=== PATIENT | male | born 1970 | race Caucasian/White ===

== ENCOUNTER → 2018-05-11 09:45 | Outpatient (CLI) | payer OTHER, SELFPAY ==
[2018-05-11 10:53] LABS: Add Manual Diff / Slide Review NO; Basophils Absolute Auto 0 /uL (0-100); Basophils Percent Auto 0.5 % (0-2); Eosinophils Absolute Auto 100 /uL (0-450); Eosinophils Percent Auto 1.8 % (2-4); Hematocrit 41.6 % (41-53); Hemoglobin 14.6 g/dL (13.5-17.5); Lymphocytes Absolute Auto 2000 /uL (1100-4500); Lymphocytes Percent Auto 30.5 % (25-40); Mean Corpuscular HGB Conc 35.1 % (30-36); Mean Corpuscular Hemoglobin 31.2 PG (26-34); Mean Corpuscular Volume 88.8 fL (80-100); Monocytes Absolute Auto 400 /uL (0-900); Monocytes Percent Auto 6.2 % (3-14); Neutrophils Absolute Auto 4100 /uL (1500-7000); Platelet Count 260 X10^3/uL (150-400); Red Blood Cell Count 4.68 X10^6/uL (4.5-5.9); Red Cell Distribution Width 13.4 % (11.6-14.8); White Blood Cell Count 6.7 X10^3/uL (4.5-11.0)
[2018-05-11 11:09] LABS: Alanine Aminotransferase 54 IU/L (21-72); Albumin 4.8 g/dL (3.5-5.0); Albumin Globulin Ratio 1.5 (1.0-2.8); Alkaline Phosphatase 56 U/L (38-126); Aspartate Aminotransferase 29 IU/L (17-59); BUN Creatinine Ratio 25.6 (6-22); Bilirubin Total 0.5 mg/dL (0.2-1.3); Blood Urea Nitrogen 23 mg/dL (9-20); Calcium 9.9 mg/dL (8.4-10.2); Carbon Dioxide 27 mmol/L (22-32); Chloride 102 mmol/L (98-107); Cholesterol 190 mg/dL (140-199); Estimated Glomerular Filt Rate > 60.0 mL/min (>60); Globulin 3.1 g/dL (1.7-4.1); Glucose 108 mg/dL (70-100); HDL Cholesterol 22 mg/dL (40-60); HEMOLYSIS < 15 (0-50); LDL Cholesterol Calculated 107 mg/dL (<100); Potassium 4.3 mmol/L (3.4-5.1); Sodium 140 mmol/L (137-145); Total Protein 7.9 g/dL (6.3-8.2); Triglycerides 305 mg/dL (35-150)
[2018-05-11 11:31] LABS: TSH w/ Reflex to FT4 2.09 uIU/mL (0.47-4.68)
== END ==
PROVIDERS: Family Provider Family Medicine; PCP Family Medicine; Visit Provider Family Medicine
DX: Z00.00 Encounter for general adult medical examination without abnormal findings (principal); Z13.6 Encounter for screening for cardiovascular disorders
CPT/HCPCS: 36415; 80053; 80061; 84443; 85025

== ENCOUNTER → 2021-04-20 11:49 | Outpatient (CLI) | payer OTHER, SELFPAY ==
[2021-04-20 13:07] LABS: Add Manual Diff / Slide Review NO; Basophils Absolute Auto 0 /uL (0-100); Basophils Percent Auto 0.6 % (0-2); Eosinophils Absolute Auto 100 /uL (0-450); Eosinophils Percent Auto 1.8 % (2-4); Hematocrit 40.1 % (41-53); Lymphocytes Absolute Auto 2600 /uL (1100-4500); Mean Corpuscular HGB Conc 34.9 % (30-36); Mean Corpuscular Hemoglobin 31.2 PG (26-34); Mean Corpuscular Volume 89.3 fL (80-100); Monocytes Absolute Auto 500 /uL (0-900); Monocytes Percent Auto 6.5 % (3-14); Neutrophils Absolute Auto 4200 /uL (1500-7000); Neutrophils Percent Auto 56.1 % (50-75); Platelet Count 288 X10^3/uL (150-400); Red Blood Cell Count 4.49 X10^6/uL (4.5-5.9); Red Cell Distribution Width 13.2 % (11.6-14.8); White Blood Cell Count 7.5 X10^3/uL (4.5-11.0)
[2021-04-20 13:35] LABS: Alanine Aminotransferase 48 IU/L (<50); Albumin 4.4 g/dL (3.5-5.0); Albumin Globulin Ratio 1.6 (1.0-2.8); Alkaline Phosphatase 55 U/L (38-126); Aspartate Aminotransferase 28 IU/L (17-59); BUN Creatinine Ratio 19.8 (6-22); Bilirubin Total 0.5 mg/dL (0.2-1.3); Blood Urea Nitrogen 17 mg/dL (9-20); Carbon Dioxide 30 mmol/L (22-32); Chloride 103 mmol/L (98-107); Cholesterol 184 mg/dL (140-199); Estimated Glomerular Filt Rate > 60.0 mL/min (>60); Globulin 2.8 g/dL (1.7-4.1); Glucose 99 mg/dL (70-100); HDL Cholesterol 25 mg/dL (40-60); HEMOLYSIS < 15 (0-50); LDL Cholesterol Calculated 113 mg/dL (<100); Potassium 4.4 mmol/L (3.4-5.1); Sodium 141 mmol/L (137-145); Total Protein 7.2 g/dL (6.3-8.2); Triglycerides 230 mg/dL (35-150)
[2021-04-20 14:01] LABS: Prostate Specific Antigen 0.617 ng/mL (0.10-4.00)
== END ==
PROVIDERS: Family Provider Family Medicine; PCP Family Medicine; Referring Provider Family Medicine; Visit Provider Family Medicine
DX: Z00.00 Encounter for general adult medical examination without abnormal findings (principal)
CPT/HCPCS: 36415; 80053; 80061; 84153; 85025

== ENCOUNTER → 2021-12-17 09:44 | Outpatient (CLI) | payer OTHER, SELFPAY ==
[2021-12-17 12:50] LABS: Cholesterol 186 mg/dL (140-199); HDL Cholesterol 26 mg/dL (40-60); LDL Cholesterol Calculated 108 mg/dL (<100); Triglycerides 261 mg/dL (35-150)
== END ==
PROVIDERS: Family Provider Family Medicine; PCP Family Medicine; Referring Provider Physician Assistant; Visit Provider Physician Assistant
DX: E78.1 Pure hyperglyceridemia (principal); Z83.3 Family history of diabetes mellitus
CPT/HCPCS: 36415; 80061

== ENCOUNTER → 2022-04-30 11:36 | Outpatient (CLI) | payer OTHER, SELFPAY ==
--- NOTE | 2022-04-30 11:37 | DI.MRI.S_ITS ---
PROCEDURE: MR LUMBAR SPINE WO CON INDICATIONS: back pain with radiculopathy TECHNIQUE: Noncontrast sagittal T1 spin echo and T2 fast echo, sagittal STIR, and T2 fast spin echo through the lumbar spine. In cases with scoliosis, additional coronal T2 fast spin echo may be performed. COMPARISON: None. FINDINGS: Image quality: Excellent. Alignment and Curvature: There is mild retrolisthesis at L4-L5, with minimal retrolisthesis at L5-S1. Bone Marrow: Marrow is of normal overall signal. No acute vertebral body compression fractures. Spinal Cord: Conus medullaris terminates at the L1 level. Visualized cord demonstrates normal signal and size. Paraspinous Soft Tissues: No paravertebral masses. T12-L1: Normal appearance. L1-L2: Normal appearance. L2-L3: Normal appearance. L3-L4: The disc height is well-preserved. Loss of disc signal is seen at this level. Moderate disc bulge is seen, which is eccentric to the left. There is a central disc extrusion, with superior migration of the disc material. Mild facet joint hypertrophy is seen. Moderate bilateral neural foraminal narrowing is seen. At least moderate central canal narrowing is seen, as on series 5, image 20. L4-L5: At least moderate loss of disc height and disc signal can be seen at this level. Reactive marrow endplate changes are seen posteriorly, which are hyperintense on T1-weighted and T2-weighted imaging and most consistent with fatty metaplasia (Modic type II changes). Moderate disc bulge is seen, with a central/right disc extrusion. There is a focal annular fissure seen posteriorly. Moderate facet joint hypertrophy is seen. There is at least moderate left-sided and moderate to severe right-sided neural foraminal narrowing. There is a degree of compression seen upon the exiting nerve roots. There is severe central canal narrowing seen, as on series 5, image 26. L5-S1: At least moderate loss of disc height and disc signal can be seen. Reactive marrow endplate changes are seen posteriorly, which are hyperintense on T1-weighted and T2-weighted imaging and most consistent with fatty metaplasia (Modic type II changes). Moderate disc bulge is seen, which is eccentric to the left. There is a superimposed central disc protrusion. At least moderate facet hypertrophy is seen. There is moderate to severe bilateral neural foraminal narrowing seen, with an associated a degree of compression seen upon the exiting nerve roots. Moderate central canal narrowing is seen. IMPRESSION: Relatively prominent lower lumbar spine degenerative changes are seen, including severe central canal narrowing at L4-L5. Disc extrusions can be seen at L3-L4 and L4-L5. Several sites of significant neural foraminal narrowing can be seen, with associated exiting nerve root compression. Dictated by: Abhijeet Fonseca M.D. on 04/30/2022 at 13:38 Approved by: Abhijeet Fonseca M.D. on 04/30/2022 at 13:47
== END ==
PROVIDERS: Family Provider Family Medicine; PCP Family Medicine; Referring Provider Family Medicine; Visit Provider Family Medicine
DX: M51.16 Intervertebral disc disorders with radiculopathy, lumbar region (principal); M51.17 Intervertebral disc disorders with radiculopathy, lumbosacral region; M47.26 Other spondylosis with radiculopathy, lumbar region; M47.27 Other spondylosis with radiculopathy, lumbosacral region; M48.061 Spinal stenosis, lumbar region without neurogenic claudication; M48.07 Spinal stenosis, lumbosacral region; M54.50 Low back pain, unspecified
CPT/HCPCS: 72148

== ENCOUNTER → 2022-05-13 12:41 | Outpatient (CLI) | payer OTHER, SELFPAY ==
--- NOTE | 2022-05-13 12:43 | DI.RAD.S_ITS ---
PROCEDURE: XR LUMBAR SPINE MIN 4V INDICATIONS: BACK PAIN TECHNIQUE: 5 views of the lumbar spine were acquired, including bilateral oblique views. COMPARISON: [facility], MR, MR LUMBAR SPINE WO CON, 04/30/2022, 11:41. FINDINGS: Bones: 5 nonrib-bearing vertebrae are present. No substantial curvature of the lumbar spine. 2 millimeters retrolisthesis L3 on L4. 2 millimeters retrolisthesis L4 on L5. No vertebral body compression fractures. Moderate multilevel degenerative changes with disc height loss, endplate spurring, and facet arthropathy. Soft tissues: Overlying bowel gas pattern is normal. No suspicious soft tissue calcifications. Oblique images: Suspect mild to moderate multilevel bony foraminal narrowing most pronounced at the lower lumbar spine. IMPRESSION: Multilevel degenerative changes of the lumbar spine worst from L4 through S1. Dictated by: Alejandro Ramirez M.D. on 05/14/2022 at 9:36 Approved by: Alejandro Ramirez M.D. on 05/14/2022 at 9:39
== END ==
PROVIDERS: Family Provider Family Medicine; PCP Family Medicine; Referring Provider Physical Medicine & Rehabilitation; Visit Provider Physical Medicine & Rehabilitation
DX: M51.26 Other intervertebral disc displacement, lumbar region (principal); M47.816 Spondylosis without myelopathy or radiculopathy, lumbar region; M47.817 Spondylosis without myelopathy or radiculopathy, lumbosacral region
CPT/HCPCS: 72110; 99214

== ENCOUNTER 2022-06-08 14:10 | Outpatient (CLI) | payer OTHER, SELFPAY ==
[2022-06-08] VITALS (8 sets, daily range): BP systolic 135–152; BP diastolic 75–98; PULSE 84–94; RESP 12–18; TEMP 36.4; O2SAT 96–98
--- NOTE | 2022-06-08 14:13 | DI.RAD.S_ITS ---
PROCEDURE: PAIN L INTERLAMINAR/CAUDAL INJ INDICATIONS: SPONDYLOSIS COMPARISON: None. FINDINGS: Fluoroscopic spot filming was performed to verify placement of spinal needles at the lower lumbar level(s), as labeled on the films. Appropriate location(s) of the needle tip(s) was confirmed by injection of iodinated contrast. IMPRESSION: Needle placement as above Dictated by: Imani Espitia M.D. on 06/09/2022 at 10:28 Transcribed by: KENNEDY on 06/09/2022 at 10:28 Approved by: Imani Espitia M.D. on 06/09/2022 at 15:56
[2022-06-08] MEDS: MIDAZOLAM 2 MG/2 ML VIAL 4 MG IV (14:50)
[2022-06-08] MEDS: BUPIVACAINE 0.25% (PF) VIAL 2 ML INJ (14:51)
[2022-06-08] MEDS: DEXAMETHASONE 10 MG/ML VIAL 20 MG INJ (14:51)
[2022-06-08] MEDS: BETAMETHASONE 30 MG/5 ML MDV 6 MG INJ (14:51)
[2022-06-08] MEDS: IOPAMIDOL 15 ML VIAL 3 ML INJ (14:51)
--- NOTE | 2022-06-08 15:03 | P.PCN_ITS ---
Date/Time/Diagnoses Date of procedure: 06/08/22 Time of procedure: 15:03 Pre-procedure diagnosis: 1. HNP WITH RADICULAR FEATURES, 2. MULTILEVEL CENTRAL STENOSIS, Post-procedure diagnosis: same Procedure Notes Procedure: 1. FLUOROSCOPICALLY GUIDED CONTRAST CONTROLLED INTERLAMINAR EPIDURAL STEROID INJECTION -L4/5 Indications: Yomi is referred by Dr. Reich for treatment of Bilateral Foraminal Stenosis R>L LE symptoms. Physician: Lm Herman Total Fluoroscopy time (seconds): 9 Total sedation minutes: 13 Complications: none Procedure in detail & Post-procedure care: FINDINGS Multilevel Central Spinal Stenosis with Nerve Root Compression DESCRIPTION OF PROCEDURE Fluoroscopically guided, contrast-controlled L4/5 translaminar epidural steroid injection. Following review of allergy and review of potential side effects and complications, including, but not necessarily limited to, infection, allergic reaction, local tissue breakdown, temporary as well as permanent nerve injury, paralysis, stroke and possible , the patient indicated that the patient understood and agreed to proceed. An informed consent document was signed by the patient, witnessed by a nurse, and placed in the patient's chart. Additionally, other treatment options including modalities, medications, and physical therapy were reviewed with the patient. After review of previous anaesthesic history and IV conscious sedation the patient was deemed safe to proceed with today?s procedure with IV conscious sedation as ASA class II designation. Safety time-out was performed to confirm patient ID, procedure to be performed and site of procedure. IV sedation was accomplished with a combination of 4mg of Versed was administered by the RN after DO order, titrated to patient comfort during the course of the procedure while the patient remained responsive to all verbal commands In the prone position, following sterile prep and drape of the lumbar region, the L4/5 translaminar space was identified fluoroscopically. The skin was anesthetized via a 25-gauge, 1.5inch needle with 1% lidocaine solution. At this point, a 22-gauge short bevel spinal needle was atraumatically introduced and advanced under fluoroscopic guidance into the region of the L4/5 translaminar space. Depth was confirmed on lateral view. Radiological data, including multiple fluoroscopic views of the lumbar spine, reveal a spinal needle at the L4/5 translaminar space. Lateral views then show placement of the needle in the epidural space. Subsequent views show contrast material flowing superiorly and inferiorly in the epidural space. No vascular or intrathecal uptake is observed. At this point, using loss of resistance technique with saline and air, the epidural space was entered. This was confirmed following negative aspiration with injection of approximately 1.5cc of Isovue 200, showing excellent epidural flow without vascular or intrathecal uptake. At this point, 1cc of 1% lidocaine solution combined with 3cc or 20mg of dexamethasone and 6mg betamethasone was injected without incident. The patient tolerated the procedure well without signs or symptoms of complications prior to transfer to the recovery area continued monitoring without incident. The patient was then transferred to the recovery area where they were observed for an appropriate period of time after the injection. The patient reported a VAS score of 6 prior to the procedure and a post- procedure VAS of 0. POST OP INSTRUCTIONS The patient was provided a Pain Log to continue to record their response to the target-specific procedure prior to follow-up visit with their referring physician. Additionally, specific post-injection care instructions and a contact number to our office were provided if concerns arise regarding possible complications associated with the procedure are suspected.
== END 2022-06-08 15:23 | disposition home or self-care (01) ==
LOC: RAD 14:12
PROVIDERS: Family Provider Family Medicine; PCP Family Medicine; Referring Provider Physical Medicine & Rehabilitation; Visit Provider Physical Medicine & Rehabilitation
DX: M51.16 Intervertebral disc disorders with radiculopathy, lumbar region (principal); M48.061 Spinal stenosis, lumbar region without neurogenic claudication
CPT/HCPCS: 62323; 99152; J0702; J1100; J2250; J3490

== ENCOUNTER 2022-09-09 08:11 | Outpatient (CLI) | payer OTHER, SELFPAY ==
[2022-09-09] VITALS (10 sets, daily range): BP systolic 133–180; BP diastolic 90–122; PULSE 85–104; RESP 14–20; TEMP 36.1; O2SAT 93–100
--- NOTE | 2022-09-09 08:12 | DI.RAD.S_ITS ---
PROCEDURE: PAIN L INTERLAMINAR/CAUDAL INJ INDICATIONS: SPONDYLOSIS COMPARISON: [facility], XA, PAIN L INTERLAMINAR/CAUDAL INJ, 06/08/2022, 15:51. FINDINGS: Fluoroscopic spot filming was performed to verify placement of spinal needles at the 4 5 level(s), as labeled on the films. Appropriate location(s) of the needle tip(s) was confirmed by injection of iodinated contrast. IMPRESSION: Fluoroscopic guidance Approved by: Carlos Burt M.D. on 09/10/2022 at 10:23
[2022-09-09] MEDS: MIDAZOLAM 2 MG/2 ML VIAL 4 MG IV (08:36)
[2022-09-09] MEDS: IOPAMIDOL 15 ML VIAL 3 ML INJ (08:39)
[2022-09-09] MEDS: methylPREDNISolone acetate 80 MG/ML VIAL INJ (08:39)
[2022-09-09] MEDS: DEXAMETHASONE 10 MG/ML VIAL 20 MG INJ (08:40)
[2022-09-09] MEDS: BUPIVACAINE 0.25% MDV 2 ML INJ (08:41)
--- NOTE | 2022-09-09 08:47 | P.PCN_ITS ---
Date/Time/Diagnoses Date of procedure: 09/09/22 Time of procedure: 08:47 Pre-procedure diagnosis: 1. HNP WITH RADICULAR FEATURES, 2. MULTILEVEL CENTRAL STENOSIS, Post-procedure diagnosis: same Procedure Notes Procedure: 1. FLUOROSCOPICALLY GUIDED CONTRAST CONTROLLED INTERLAMINAR EPIDURAL STEROID INJECTION -L4/5 Indications: Yomi is referred by Dr. Reich for treatment of HNP L>R LE symptoms. Physician: Lm Herman Total Fluoroscopy time (seconds): 6 Total sedation minutes: 12 Complications: none Procedure in detail & Post-procedure care: FINDINGS Multilevel Central Spinal Stenosis with Nerve Root Compression DESCRIPTION OF PROCEDURE Fluoroscopically guided, contrast-controlled L4/5 translaminar epidural steroid injection. Following review of allergy and review of potential side effects and complications, including, but not necessarily limited to, infection, allergic reaction, local tissue breakdown, temporary as well as permanent nerve injury, paralysis, stroke and possible , the patient indicated that the patient understood and agreed to proceed. An informed consent document was signed by the patient, witnessed by a nurse, and placed in the patient's chart. Additionally, other treatment options including modalities, medications, and physical therapy were reviewed with the patient. After review of previous anaesthesic history and IV conscious sedation the patient was deemed safe to proceed with today?s procedure with IV conscious sedation as ASA class II designation. Safety time-out was performed to confirm patient ID, procedure to be performed and site of procedure. IV sedation was accomplished with a combination of 4mg of Versed was administered by the RN after DO order, titrated to patient comfort during the course of the procedure while the patient remained responsive to all verbal commands In the prone position, following sterile prep and drape of the lumbar region, the L4/5 translaminar space was identified fluoroscopically. The skin was anesthetized via a 25-gauge, 1.5inch needle with 1% lidocaine solution. At this point, a 22-gauge short bevel spinal needle was atraumatically introduced and advanced under fluoroscopic guidance into the region of the L4/5 translaminar space. Depth was confirmed on lateral view. Radiological data, including multiple fluoroscopic views of the lumbar spine, reveal a spinal needle at the L4/5 translaminar space. Lateral views then show placement of the needle in the epidural space. Subsequent views show contrast material flowing superiorly and inferiorly in the epidural space. No vascular or intrathecal uptake is observed. At this point, using loss of resistance technique with saline and air, the epidural space was entered. This was confirmed following negative aspiration with injection of approximately 1.5cc of Isovue 200, showing excellent epidural flow without vascular or intrathecal uptake. At this point, 1cc of 1% lidocaine solution combined with 3cc or 20mg of dexamethasone and 80mg depo medrol was injected without incident. The patient tolerated the procedure well without signs or symptoms of complications prior to transfer to the recovery area continued monitoring without incident. The patient was then transferred to the recovery area where they were observed for an appropriate period of time after the injection. The patient reported a VAS score of 6 prior to the procedure and a post- procedure VAS of 0. POST OP INSTRUCTIONS The patient was provided a Pain Log to continue to record their response to the target-specific procedure prior to follow-up visit with their referring physician. Additionally, specific post-injection care instructions and a contact number to our office were provided if concerns arise regarding possible complications associated with the procedure are suspected.
== END 2022-09-09 09:10 | disposition home or self-care (01) ==
LOC: RAD 08:12
PROVIDERS: Family Provider Family Medicine; PCP Family Medicine; Referring Provider Physical Medicine & Rehabilitation; Visit Provider Physical Medicine & Rehabilitation
DX: M51.16 Intervertebral disc disorders with radiculopathy, lumbar region (principal); M48.061 Spinal stenosis, lumbar region without neurogenic claudication
CPT/HCPCS: 62323; 99152; J0702; J1040; J1100; J2250; J3490

== ENCOUNTER 2023-02-01 09:49 | Outpatient (CLI) | payer OTHER, SELFPAY ==
[2023-02-01] VITALS (10 sets, daily range): BP systolic 126–152; BP diastolic 60–97; PULSE 64–86; RESP 13–20; TEMP 35.9; O2SAT 93–97
--- NOTE | 2023-02-01 09:51 | DI.RAD.S_ITS ---
PROCEDURE: PAIN L/S TRANSFORAMINAL INJECT INDICATIONS: SPONDYLOSIS COMPARISON: XA, PAIN L INTERLAMINAR/CAUDAL INJ, 09/09/2022, 8:39. XA, PAIN L INTERLAMINAR/CAUDAL INJ, 06/08/2022, 15:51. CR, XR LUMBAR SPINE MIN 4V, 05/13/2022, 12:56. [facility], MR, MR LUMBAR SPINE WO CON, 04/30/2022, 11:41. RG, XR L-SPINE 2-3V, 12/21/2005, 11:31. FINDINGS: Fluoroscopic spot filming was performed to verify placement of spinal needles at the L4-5 level(s), as labeled on the films. Appropriate location(s) of the needle tip(s) was confirmed by injection of iodinated contrast. IMPRESSION: Needle placement and contrast injection overlying L4-5. Dictated by: Niki Martinez M.D. on 02/01/2023 at 14:33 Approved by: Niki Martinez M.D. on 02/01/2023 at 14:34
[2023-02-01] MEDS: MIDAZOLAM 2 MG/2 ML VIAL IV (10:38)
[2023-02-01] MEDS: fentaNYL 100 MCG/2 ML INJ 50 MCG IV ×2 (10:38→10:44)
--- NOTE | 2023-02-01 10:56 | P.PCN_ITS ---
Date/Time/Diagnoses Date of procedure: 02/01/23 Time of procedure: 10:56 Pre-procedure diagnosis: 1. FORAMINAL STENOSIS WITH LE SYMPTOMS Post-procedure diagnosis: same Procedure Notes Procedure: 1. FLUOROSCOPICALLY GUIDED CONTRAST CONTROLLED TRANSFORAMINAL EPIDURAL STEROID INJECTION - RIGHT L4/5 TFESI Indications: Yomi is referred by Dr. Reich for treatment of Foraminal Stenosis with Right LE Symptoms Physician: Lm Herman Total Fluoroscopy time (seconds): 13 Total sedation minutes: 15 Complications: none Procedure in detail & Post-procedure care: FINDINGS Foraminal Nerve Root Compression secondary to disc disease and facet hypertrophy DESCRIPTION OF PROCEDURE Following review of allergy and review of potential side effects and complications, including, but not necessarily limited to, infection, allergic reaction, local tissue breakdown, stroke, temporary or permanent nerve injury, paralysis, and possible , the patient indicated that the patient understood and agreed to proceed. An informed consent document was signed by the patient, witnessed by a nurse, and placed in the patient's chart. Additionally, other treatment options including medications, modalities, and physical therapy were reviewed with the patient. After review of previous anaesthesic history and IV conscious sedation the patient was deemed safe to proceed with today?s procedure with IV conscious sedation as ASA class II designation. Safety time-out was performed to confirm patient ID, procedure to be performed and site of procedure. IV sedation was accomplished with a combination of 2mg of Versed and 100mcg of Fentanyl was administered by the RN after DO order, titrated to patient comfort during the course of the procedure while the patient remained responsive to all verbal c ommands In the prone position following sterile prep and drape of the lumbar region, the right L4/5 posterior neuroforamen was identified fluoroscopically. The skin was anesthetized via a 25-gauge 1.5-inch needle with 1% lidocaine solution. At this point, a 25-gauge 3.5-inch spinal needle was atraumatically introduced and advanced under fluoroscopic guidance through the posterior right L4/5 neuroforamen to approximately the anterior aspect of the canal. Depth was confirmed on lateral view. Following negative aspiration, injection of approximately 1.5cc of Isovue 200 under live fluoroscopy in the AP view confirmed excellent flow along the nerve root, into the epidural space without vascular or intrathecal uptake observed Radiological data, including multiple fluoroscopic views of the lumbosacral spine, reveal a spinal needle at the right L4/5 posterior neuroforamen. Subsequent views show flow of contrast material flowing superiorly and inferiorly along the nerve root confirming epidural flow. Subsequently, a test dose of 1.5 cc of 1% lidocaine solution was administered and patient was observed for two minutes for signs or symptoms of complications, including abdominal pain, shortness of breath, bilateral upper or lower extremity weakness, nausea and vomiting, prior to steroid injection. At this point, a total of 2cc or 10mg of dexamethasone and 6mg of betamethasone was injected without incident. The procedure tolerated the procedure well without signs or symptoms of complications prior to transfer to the recovery area continued monitoring without incident. The patient was then transferred to the recovery area where they were observed for an appropriate time after the injection. The patient reported a VAS score of 7 prior to the procedure and a post- procedure VAS of 0. POST OP INSTRUCTIONS The patient was provided a Pain Log to continue to record their response to the target-specific procedure prior to follow-up visit with their referring physician. Additionally, specific post-injection care instructions and a contact number to our office were provided if concerns arise regarding possible complications associated with the procedure are suspected.
== END 2023-02-01 11:15 | disposition home or self-care (01) ==
LOC: RAD 09:50
PROVIDERS: Family Provider Family Medicine; PCP Family Medicine; Referring Provider Physical Medicine & Rehabilitation; Visit Provider Physical Medicine & Rehabilitation
DX: M48.061 Spinal stenosis, lumbar region without neurogenic claudication (principal); M51.16 Intervertebral disc disorders with radiculopathy, lumbar region; M47.26 Other spondylosis with radiculopathy, lumbar region
CPT/HCPCS: 64483; 99152; J0702; J1100; J2250; J3010

== ENCOUNTER 2023-04-15 13:09 | Day surgery (SDC) | payer OTHER, SELFPAY ==
[2023-04-15] VITALS (7 sets, daily range): BP systolic 113–178; BP diastolic 71–110; PULSE 73–88; RESP 16–18; TEMP 36.2–36.9; O2SAT 97–98; BMI 31.5
--- NOTE | 2023-04-15 | PATH_ITS ---
[facility] Accession Number: [id number] No. of containers..01 Tissue . 01 Material submitted: . colon - DESCENDING POLYP . 01 Diagnosis: Descending Colon Polyp, Biopsy: Tubular adenoma. [facility] 04/19/2023 1048 Local . 01 Electronically signed: . Jodi Fuentes MD, Pathologist NPI- [id number] . 01 Gross description: . DESCENDING POLYP: Received in formalin are 2 fragment(s) of childers, soft tissue measuring 0.1 x 0.1 x 0.1 cm to 0.3 x 0.3 x 0.3 cm submitted entirely in 1 cassette(s) /[facility] 04/18/2023 1918 Local . 01 Pathologist provided ICD-10: D12.4 . 01 CPT . 115719 Specimen Comment: A courtesy copy of this report has been sent to [phone] Performed at: 01 [facility] [address] [place] [address], [place], [place] [id number] MD Nico Bennett MD Phone: [phone]
--- NOTE | 2023-04-15 13:35 | P.HP_ITS ---
History of Present Illness History of Present Illness Date Patient Seen: 04/15/23 Chief complaint: EGD & Screening Colonoscopy Narrative: 52-year-old man chronic GERD here for screening EGD and colonoscopy. GERD is fairly well controlled with Prilosec twice daily. No esophageal dysphagia unintentional weight loss blood per rectum. They have never had any previous examination for such. No personal or family history of colon cancer in first- degree relatives. [facility] Medical History Facet arthropathy, cervical Facet arthropathy, lumbar Herniated nucleus pulposus, L4-5 Family History Father Diabetes mellitus Social History marital status: household members: spouse Smoking Status: Current every day smoker alcohol intake: current substance use type: does not use Meds Home Medications and Allergies Home Medications Medication Instructions Recorded Confirmed Type ibuprofen 200 mg capsule 200 mg PO Q6H PRN Pain (Scale 05/13/22 04/15/23 History Score 1-3) gabapentin 600 mg tablet 600 mg PO BID #60 tabs 08/12/22 04/15/23 Rx hydrocodone 5 mg-acetaminophen 325 1 tab PO BID #30 tabs 08/12/22 04/15/23 Rx mg tablet omeprazole 20 mg capsule,delayed 20 mg PO BID #180 caps 03/02/23 04/15/23 Rx release sildenafil (pulm.hypertension) 20 60 mg (3 x 20 mg) PO .QDAY PRN 03/17/23 03/17/23 Rx mg tablet (Revatio) sexual activity #30 tabs varenicline 1 mg tablet 1 mg PO BID #180 tabs 03/31/23 04/15/23 Rx Allergies Allergy/AdvReac Type Severity Reaction Status Date / Time No Known Drug Allergies Allergy Verified 04/15/23 13:19 Exam Vital Signs (past 8 hours): - 04/15/23 13:26 Temperature 97.1 F L Pulse Rate 73 Respiratory Rate 18 Blood Pressure 134/84 Pulse Oximetry 97 Oxygen Delivery Method Room Air Oxygen Delivery Method Room Air Narrative Exam Narrative: General adult man alert oriented no acute distress Chest nonlabored respiration Extremities warm well perfused Assessment & Plan Assessment and plan (1) Gastroesophageal reflux disease: Qualifiers: Esophagitis presence: esophagitis presence not specified Qualified Code(s): K21.9 - Gastro-esophageal reflux disease without esophagitis Status: Acute Assessment & Plan narrative: 52-year-old man with chronic GERD here for screening esophagoduodenoscopy and c olonoscopy. Technical details were discussed. Risks, benefits, alternatives explained. Risks including but not limited to myocardial infarction, aspiration, bleeding, pain, missed lesion, incomplete examination, need for further radiographic studies, colonic perforation, and need for major abdominal surgery were discussed. All questions were answered to their satisfaction, and they are in agreement with this plan.
[2023-04-15] MEDS: LACTATED RINGERS 1,000 ML 42 ML IV (13:56)
--- NOTE | 2023-04-15 14:46 | PM.OP.EC ---
Operative Date/Time/Diagnoses Date of procedure: 04/15/23 Time of procedure: 14:46 Pre-op diagnosis: GERD Post-op diagnosis: other (Colonic polyp x1) Procedure & Clinicians Study performed: Screening esophagoduodenoscopy and colonoscopy Same procedure as scheduled: Yes Indications: Colorectal screening Chronic GERD Surgeon: Med Finley Procedure Notes Procedure in detail: The history and physical was performed/updated and the patient is ASA class is 3. The procedure was discussed in detail with the patient. Potential risks complications including infection, bleeding, missed diagnosis, perforation, need for surgery, and were explained. Their questions were answered and informed consent was obtained. Patient placed in left lateral decubitus position. Time out was performed. Procedural sedation was administered by Anesthesia. A bite block was placed. the scope was inserted into the mouth and advanced through the esophagus and into the stomach. the pylorus was intubated and the duodenum was examined to the 2nd portion.. The scope was retroflexed within the stomach. The stomach was then decompressed and scope pulled back to the GE junction. The scope was then removed Examination began with a thorough inspection of the perianal area there was no evidence of fissures, fistulae, external hemorrhoids or cutaneous malignancy. The colonoscopy scope was then placed into the anal canal and was advanced to the cecum, which was identified by the ileocecal valve, the appendiceal orifice and the confluence of the taenia. The scope was then slowly withdrawn examining colon thoroughly in all directions, irrigating it of any residual stool. FINDINGS -unremarkable upper endoscopy. -no evidence of Calderon's esophagus -descending colon 5 mm polyp removed with biopsy forceps in entirety. The patient tolerated the procedure well. They will be discharged once criteria are met. The prep was of good/excellent quality. The withdrawl time was 6 minutes. Specimen(s): other (Descending colon polyp) Impression: Colonic polyp x1 Post-procedure Plan for aftercare: Follow-up dependent on pathology findings likely 5 years. Disposition: same day surgery
--- NOTE | 2023-04-15 15:11 | SUR.PHASEII ---
Pt to Phase II. Pt with excessive flatus. Abdomen distended, soft. Pt up to restroom. Pt states he feels better.
== END 2023-04-15 15:30 | disposition home or self-care (01) ==
PROVIDERS: Family Provider Family Medicine; PCP Family Medicine; Referring Provider Surgery; Visit Provider Surgery
PROC: 0DJ08ZZ Inspection of Upper Intestinal Tract, Via Natural or Artificial Opening Endoscopic (ICD-10-PCS; CPT 43235; principal; 2023-04-15 14:15)
PROC: 0DJD8ZZ Inspection of Lower Intestinal Tract, Via Natural or Artificial Opening Endoscopic (ICD-10-PCS; CPT 45378; 2023-04-15 14:15)
DX: Z12.11 Encounter for screening for malignant neoplasm of colon (principal); K21.9 Gastro-esophageal reflux disease without esophagitis; D12.4 Benign neoplasm of descending colon
CPT/HCPCS: 45380; 43235; J2704

== ENCOUNTER → 2023-05-03 09:47 | Outpatient (CLI) | payer OTHER, SELFPAY ==
[2023-05-03 10:26] LABS: Add Manual Diff / Slide Review NO; Basophils Absolute Auto 100 /uL (0-100); Basophils Percent Auto 0.7 % (0-2); Eosinophils Absolute Auto 100 /uL (0-450); Eosinophils Percent Auto 1.2 % (2-4); Hematocrit 40.9 % (41-53); Hemoglobin 14.3 g/dL (13.5-17.5); Lymphocytes Absolute Auto 2300 /uL (1100-4500); Lymphocytes Percent Auto 28.2 % (25-40); Mean Corpuscular HGB Conc 34.9 % (30-36); Mean Corpuscular Hemoglobin 30.8 PG (26-34); Mean Corpuscular Volume 88.2 fL (80-100); Monocytes Absolute Auto 500 /uL (0-900); Monocytes Percent Auto 6.4 % (3-14); Neutrophils Absolute Auto 5100 /uL (1500-7000); Neutrophils Percent Auto 63.5 % (50-75); Platelet Count 261 X10^3/uL (150-400); Red Blood Cell Count 4.64 X10^6/uL (4.5-5.9); Red Cell Distribution Width 13.1 % (11.6-14.8)
[2023-05-03 10:50] LABS: Alanine Aminotransferase 49 IU/L (<50); Albumin 4.4 g/dL (3.5-5.0); Albumin Globulin Ratio 1.5 (1.0-2.8); Alkaline Phosphatase 55 U/L (38-126); Aspartate Aminotransferase 29 IU/L (17-59); BUN Creatinine Ratio 21.8 (6-22); Bilirubin Total 0.6 mg/dL (0.2-1.3); Blood Urea Nitrogen 19 mg/dL (9-20); Calcium 9.7 mg/dL (8.4-10.2); Carbon Dioxide 29 mmol/L (22-32); Chloride 102 mmol/L (98-107); Cholesterol 203 mg/dL (140-199); Estimated Glomerular Filt Rate > 60 mL/min (>60); Glucose 116 mg/dL (70-100); HDL Cholesterol 28 mg/dL (40-60); HEMOLYSIS < 15 (0-50); Potassium 3.9 mmol/L (3.4-5.1); Sodium 139 mmol/L (137-145); Total Protein 7.4 g/dL (6.3-8.2); Triglycerides 487 mg/dL (35-150)
[2023-05-03 11:21] LABS: TSH w/ Reflex to FT4 1.53 uIU/mL (0.47-4.68)
== END ==
PROVIDERS: Family Provider Family Medicine; PCP Family Medicine; Referring Provider Family Medicine; Visit Provider Family Medicine
DX: E78.1 Pure hyperglyceridemia (principal); M54.50 Low back pain, unspecified
CPT/HCPCS: 36415; 80053; 80061; 84443; 85025

== ENCOUNTER → 2024-05-25 07:45 | Outpatient (CLI) | payer OTHER, SELFPAY ==
--- NOTE | 2024-05-25 07:47 | DI.CT.S_ITS ---
PROCEDURE: CT LUNG LOW DOSE SCREENING INDICATIONS: 20 year smoker TECHNIQUE: Noncontrast 2.0-2.5 mm thick sections acquired from the pulmonary apices to the posterior costophrenic angles. 7 mm thick axial MIP, and 5 mm coronal and sagittal reformats were then acquired. For radiation dose reduction, the following was used: automated exposure control, adjustment of mA and/or kV according to patient size. COMPARISON: None. FINDINGS: Image quality: Diagnostic. Lower Neck: No enlarged lymph nodes. Thyroid: No thyroid nodules which require sonographic follow up, per consensus guidelines. Axillae: No enlarged lymph nodes. Chest Wall: Unremarkable. Bones: Unremarkable. Lungs and Pleura: No pneumothorax or pleural effusions. No consolidation or suspicious nodules. Heart: Heart size is normal. No pericardial effusion. Thoracic Vessels: The aorta and pulmonary arteries demonstrate normal size. Mediastinum and Shelly: No enlarged lymph nodes. Esophagus: No wall thickening. No hiatal hernia. Upper Abdomen: Visualized upper abdomen solid organs and bowel loops appear normal. IMPRESSION: No suspicious pulmonary nodules. LUNG-RADS 1; continued annual screening, if eligible. Clinically Significant Non-pulmonary Findings: None. Approved by: Stephanie Quintanilla M.D.,Ph.D. on 05/25/2024 at 23:52
[2024-05-25 08:45] LABS: Add Manual Diff / Slide Review NO; Basophils Absolute Auto 100 /uL (0-100); Basophils Percent Auto 0.7 % (0-2); Eosinophils Absolute Auto 100 /uL (0-450); Eosinophils Percent Auto 1.2 % (2-4); Hematocrit 41.8 % (41-53); Hemoglobin 14.4 g/dL (13.5-17.5); Lymphocytes Absolute Auto 2300 /uL (1100-4500); Lymphocytes Percent Auto 24.9 % (25-40); Mean Corpuscular HGB Conc 34.3 % (30-36); Mean Corpuscular Hemoglobin 31.2 PG (26-34); Monocytes Absolute Auto 600 /uL (0-900); Monocytes Percent Auto 6.7 % (3-14); Neutrophils Absolute Auto 6200 /uL (1500-7000); Neutrophils Percent Auto 66.5 % (50-75); Platelet Count 281 X10^3/uL (150-400); Red Cell Distribution Width 13.7 % (11.6-14.8); White Blood Cell Count 9.2 X10^3/uL (4.5-11.0)
[2024-05-25 09:09] LABS: Alanine Aminotransferase 61 IU/L (<50); Albumin 4.5 g/dL (3.5-5.0); Albumin Globulin Ratio 1.7 (1.0-2.8); Alkaline Phosphatase 67 U/L (38-126); Aspartate Aminotransferase 35 IU/L (17-59); BUN Creatinine Ratio 21.3 (6-22); Bilirubin Total 0.6 mg/dL (0.2-1.3); Blood Urea Nitrogen 20 mg/dL (9-20); Calcium 9.8 mg/dL (8.4-10.2); Carbon Dioxide 27 mmol/L (22-32); Chloride 105 mmol/L (98-107); Estimated Glomerular Filt Rate > 60 mL/min (>60); Globulin 2.6 g/dL (1.7-4.1); Glucose 117 mg/dL (70-100); HDL Cholesterol 25 mg/dL (40-60); HEMOLYSIS < 15 (0-50); Potassium 4.3 mmol/L (3.4-5.1); Sodium 139 mmol/L (137-145); Total Protein 7.1 g/dL (6.3-8.2)
[2024-05-25 09:10] LABS: Cholesterol 211 mg/dL (140-199); Triglycerides 432 mg/dL (35-150)
[2024-05-25 09:34] LABS: TSH w/ Reflex to FT4 2.33 uIU/mL (0.47-4.68)
[2024-05-25 09:39] LABS: Prostate Specific Antigen Scrn 0.634 ng/mL (0.1-4.0)
[2024-05-25 11:42] LABS: Hemoglobin A1C% w Est Avg Glu 5.3 % (4.0-6.0)
== END ==
PROVIDERS: Family Provider Family Medicine; PCP Family Medicine; Referring Provider Family Medicine; Visit Provider Family Medicine
DX: Z12.2 Encounter for screening for malignant neoplasm of respiratory organs (principal); F17.210 Nicotine dependence, cigarettes, uncomplicated; Z12.5 Encounter for screening for malignant neoplasm of prostate; R73.9 Hyperglycemia, unspecified; E78.1 Pure hyperglyceridemia; Z83.3 Family history of diabetes mellitus
CPT/HCPCS: 36415; 71271; 80053; 80061; 83036; 84443; 85025; G0103

== ENCOUNTER 2024-08-07 12:18 | Emergency (ER) | payer OTHER, SELFPAY ==
[2024-08-07 12:23] VITALS: BP 158/91; PULSE 78; RESP 18; TEMP 36.7; O2SAT 96; BMI 31.5
[2024-08-07] MEDS: KETOROLAC 30 MG/ML VIAL IM (13:03)
[2024-08-07] MEDS: CYCLOBENZAPRINE 10 MG TABLET PO (13:03)
--- NOTE | 2024-08-07 13:14 | ED_ITS ---
HPI - Back Pain/Injury <Avinash Christianson PA-C - Last Filed: 08/07/24 13:18> General Chief Complaint: Back Pain/Injury Stated Complaint: BACK PAIN, DIFFICULTY WALKING Time Seen by Provider: 08/07/24 12:42 Source: patient History of Present Illness HPI Narrative: 53-year-old male presents to the ED with an acute exacerbation of chronic lower back pain. Patient states he has been diagnosed with multiple disc issues in the past and has had MRIs for it. Patient states that his lower back pain flared up 3 days ago after walking a mile and doing some yd work. Pain does not radiate. Patient localizes the pain to midline of the lower back. No trauma. No numbness, tingling, weakness, urinary hesitancy. No fever, chills. Related Data Previous Rx's Medication Instructions Recorded cyclobenzaprine 10 mg tablet 10 mg PO BID PRN muscle spasm #60 04/27/23 tabs omeprazole 20 mg capsule,delayed 20 mg PO BID #180 caps 05/21/24 release cyclobenzaprine 10 mg tablet 10 mg PO TID PRN muscle spasm #14 08/07/24 tabs Allergies Allergy/AdvReac Type Severity Reaction Status Date / Time No Known Drug Allergies Allergy Verified 05/21/24 11:33 Review of Systems <Avinash Christianson PA-C - Last Filed: 08/07/24 13:18> Constitutional Constitutional: Denies chills, Denies fatigue, Denies fever(s), Denies frequent falls, Denies lethargy and Denies weakness Eyes Eyes: Denies change in vision, Denies eye discharge, Denies irritation and Denies loss of vision ENT Ears, Nose, Mouth, and Throat: Denies change in voice, Denies dizziness, Denies neck pain, Denies sore throat and Denies throat swelling Cardiovascular Cardiovascular: Denies chest pain, Denies irregular heart rhythm, Denies l ightheadedness, Denies palpitations, Denies dyspnea, Denies dyspnea on exertion and Denies orthopnea Respiratory Respiratory: Denies cough, Denies dyspnea, Denies dyspnea on exertion and Denies wheezing Gastrointestinal Gastrointestinal: Denies abdominal pain, Denies change in bowel habits, Denies diarrhea, Denies nausea and Denies vomiting Musculoskeletal Musculoskeletal: Reports back pain, Denies neck pain and Denies numbness Integumentary/Breasts Skin/Breast: Denies pruritus, Denies erythema, Denies rash and Denies wounds Neurologic Neurologic: Denies behavioral changes, Denies confusion, Denies dizziness, Denies frequent falls, Denies loss of vision, Denies numbness and Denies weakness Psychiatric Psychiatric: Denies anxiety, Denies behavioral changes, Denies confusion, Denies depression, Denies homicidal ideation and Denies suicidal ideation Endocrine Endocrine: Denies fatigue, Denies flushing and Denies palpitations Hematologic/Lymphatic Hematologic/Lymphatic: Denies easy bruising Allergic/Immunologic Allergic/Immunologic: Denies urticaria, Denies throat swelling and Denies wheezing Patient History <Avinash Christianson PA-C - Last Filed: 08/07/24 13:18> Medical History Facet arthropathy, cervical Facet arthropathy, lumbar Herniated nucleus pulposus, L4-5 Family History Father Diabetes mellitus Social History marital status: household members: spouse Smoking Status: Current every day smoker alcohol intake: current substance use type: does not use Smoking Status: Current every day smoker tobacco type: cigarettes alcohol intake frequency: a few times a week Exam <Avinash Christianson PA-C - Last Filed: 08/07/24 13:18> Narrative Exam Narrative: Const General:?cooperative, healthy appearing and comfortable [facility] Head:?normal to inspection Ears:?hearing grossly normal bilaterally Nose:?external nose normal Face and sinus:?normal facial exam and sinuses nontender Mouth:?oral mucosae normal Throat:?posterior oropharynx normal Eyes General:?appearance normal, both eyes and all related structures Neck Neck:?normal visual inspection and no lymphadenopathy noted Resp Effort & Inspection:?normal respiratory effort Auscultation:?clear to auscultation bilaterally Cardio Rate:?regular rate Rhythm:?regular rhythm Musculoskeletal No midline tenderness to palpation. No paraspinal tenderness to palpation. Skin normal. Full range of motion. Patient is able to bear weight and walk. Neurovascularly intact. Neuro General:?patient alert, patient awake and patient oriented x3 Initial Vital Signs Initial Vital Signs: Vital Signs Temperature 98.1 F 08/07/24 12:23 Pulse Rate 78 08/07/24 12:23 Respiratory Rate 18 08/07/24 12:23 Blood Pressure 158/91 H 08/07/24 12:23 Pulse Oximetry 96 08/07/24 12:23 Oxygen Delivery Method Room Air 08/07/24 12:23 <Artur Gore MD - Last Filed: 08/07/24 15:09> Initial Vital Signs Initial Vital Signs: Vital Signs Temperature 98.1 F 08/07/24 12:23 Pulse Rate 78 08/07/24 12:23 Respiratory Rate 18 08/07/24 12:23 Blood Pressure 158/91 H 08/07/24 12:23 Pulse Oximetry 96 08/07/24 12:23 Oxygen Delivery Method Room Air 08/07/24 12:23 Course <Avinash Christianson PA-C - Last Filed: 08/07/24 13:18> Orders Ordered: Discontinued Medications Cyclobenzaprine HCl (Cyclobenzaprine 10 Mg Tablet) 10 mg PO NOW ONE Stop: 08/07/24 12:57 Last Admin: 08/07/24 13:03 Dose: 10 mg Documented By: MATTHEW Ketorolac Tromethamine (Ketorolac 30 Mg/Ml Vial) 30 mg IM NOW ONE Stop: 08/07/24 12:57 Last Admin: 08/07/24 13:03 Dose: 30 mg Documented By: RL Vital Signs Vital signs: Vital Signs - 8 hr 08/07/24 12:23 08/07/24 13:20 Temperature 98.1 F Pulse Rate 78 71 Respiratory Rate 18 18 Blood Pressure 158/91 H 168/88 H Pulse Oximetry 96 97 Oxygen Delivery Method Room Air Room Air <Artur Gore MD - Last Filed: 08/07/24 15:09> Orders Ordered: Discontinued Medications Cyclobenzaprine HCl (Cyclobenzaprine 10 Mg Tablet) 10 mg PO NOW ONE Stop: 08/07/24 12:57 Last Admin: 08/07/24 13:03 Dose: 10 mg Documented By: RL Ketorolac Tromethamine (Ketorolac 30 Mg/Ml Vial) 30 mg IM NOW ONE Stop: 08/07/24 12:57 Last Admin: 08/07/24 13:03 Dose: 30 mg Documented By: RL Vital Signs Vital signs: Vital Signs - 8 hr 08/07/24 12:23 08/07/24 13:20 Temperature 98.1 F Pulse Rate 78 71 Respiratory Rate 18 18 Blood Pressure 158/91 H 168/88 H Pulse Oximetry 96 97 Oxygen Delivery Method Room Air Room Air MDM - Back Pain/Injury <Avinash Christianson PA-C - Last Filed: 08/07/24 13:18> MDM Narrative Medical decision making narrative: 53-year-old male presents to the ED with an acute exacerbation of chronic lower back pain. Your exam is reassuring for no midline tenderness to palpation or paraspinal tenderness to palpation. There was no trauma. No red flags symptoms. Patient's symptoms consistent with a acute on chronic exacerbation of back pain. Prescribed muscle relaxants. Patient was given a dose of Toradol in the ED. recommend follow-up with PCP for further evaluation, PT referral. ED return precautions were discussed with patient. Patient verbalized understanding. Medical records reviewed: Yes Discharge Plan Departure Patient Disposition: Home Clinical Impression: Low back pain Qualifiers: Chronicity: chronic Back pain laterality: midline Sciatica presence: without sciatica Qualified Code(s): M54.50 - Low back pain, unspecified Instructions: DI for Low Back Pain Activity Restrictions/Additional Instructions: You were evaluated in the ED today for lower back pain. It appears that you either have a musculoskeletal sprain/strain versus a disc issue. You were given an injection of Toradol and a muscle relaxant for pain relief. You may continue taking the muscle relaxant at home. You may take 800 mg of ibuprofen with food every 8 hours. You may also take 1000 mg of Tylenol every 8 hours. Please follow-up with your PCP as soon as possible. Return to the ED if you have worsening symptoms, numbness, tingling, weakness, urinary difficulties. Prescriptions: New cyclobenzaprine 10 mg tablet 10 mg PO TID PRN (Reason: muscle spasm) Qty: 14 0RF No Action omeprazole 20 mg capsule,delayed release(DR/EC) 20 mg PO BID Qty: 180 3RF cyclobenzaprine 10 mg tablet 10 mg PO BID PRN (Reason: muscle spasm) Qty: 60 1RF Referrals: Ilya Reich MD [Primary Care Provider] - Stand Alone Forms: Patient Portal/API/Survey ED Sign-out <Artur Gore MD - Last Filed: 08/07/24 15:09> Cosign ED Attending Cosignature Attestation: I was immediately available in the department for consultation. ?This documentation has been reviewed and I agree with assessment and plan. Supervised by Artur Gore MD
[2024-08-07 13:20] VITALS: BP 168/88; PULSE 71; RESP 18; O2SAT 97
== END 2024-08-07 13:26 | disposition home or self-care (01) ==
PROVIDERS: Emergency Provider Student in an Organized Health Care Education/Training Program; Family Provider Family Medicine; PCP Family Medicine
DX: M54.50 Low back pain, unspecified (principal); G89.29 Other chronic pain
CPT/HCPCS: 96372; 99283; 99284; J1885